=== PATIENT | female | born 1960 | race Caucasian/White ===

== ENCOUNTER → 2024-11-24 | Outpatient (CLI) | payer MEDICARE, OTHER | LOC: RAD 12:02 | DX: M50.10 Cervical disc disorder with radiculopathy, unspecified cervical region (principal); I65.23 Occlusion and stenosis of bilateral carotid arteries ==

== ENCOUNTER → 2024-11-27 | Outpatient (CLI) | payer MEDICARE, OTHER | LOC: RAD 11:13 | DX: M47.22 Other spondylosis with radiculopathy, cervical region (principal); M48.061 Spinal stenosis, lumbar region without neurogenic claudication ==